=== PATIENT | female | born 1950 | race Two or more races ===

== ENCOUNTER 2025-03-08 07:00 | Day surgery (SDC) | payer OTHER ==
[2025-03-08] MEDS ORDERED: MACROBID 100 M100 MG PO (09:42)
[2025-03-08] MEDS ORDERED: TRAM1TAB98 PO (09:43)
[2025-03-08] MEDS ORDERED: CEFAZOLIN SODIUM 1,000 MG VIAL IJ ONE (10:15)
[2025-03-08] MEDS ORDERED: CHLORHEXIDINE GLUCONATE 120 ML BOTTLE TOP ONE (10:15)
[2025-03-08] MEDS ORDERED: CEFAZOLIN SODIUM 1,000 MG VIAL IV ONE (10:15)
[2025-03-08] MEDS ORDERED: GENTAMICIN SULFATE 40 MG/ML VIAL IR ONE (10:15)
== END 2025-03-08 12:55 | disposition home or self-care (01) ==
LOC: CIR.AMB 07:00
PROVIDERS: ATTEND Obstetrics & Gynecology Gynecology
DX: N81.11 Cystocele, midline (principal)